=== PATIENT | female | born 1970 | race Caucasian/White ===

== ENCOUNTER → 2024-04-28 10:53 | Outpatient (REF) | payer OTHER, SELFPAY | LOC: WDC 10:53 | PROVIDERS: ATTENDING PHYSICIAN Obstetrics & Gynecology; FAMILY PHYSICIAN Family Medicine | DX: Z12.31 Encounter for screening mammogram for malignant neoplasm of breast (principal) | CPT/HCPCS: 77063; 77067 ==

== ENCOUNTER → 2024-08-18 14:27 | Outpatient (REF) | payer OTHER, SELFPAY | LOC: RAD 14:27 | PROVIDERS: ATTENDING PHYSICIAN Obstetrics & Gynecology; FAMILY PHYSICIAN Family Medicine | DX: D27.9 Benign neoplasm of unspecified ovary (principal) | CPT/HCPCS: 76830; 76856 ==

== ENCOUNTER → 2024-12-28 17:39 | Outpatient (REF) | payer OTHER, SELFPAY | LOC: MRI 17:39 | PROVIDERS: ATTENDING PHYSICIAN Orthopaedic Surgery; FAMILY PHYSICIAN Family Medicine | DX: M25.562 Pain in left knee (principal) | CPT/HCPCS: 73721 ==

== ENCOUNTER 2025-03-02 07:38 | Outpatient (RCR) | payer OTHER, SELFPAY | END 2025-03-02 23:59 | disposition home or self-care (01) | LOC: RPT 07:38 | PROVIDERS: ATTENDING PHYSICIAN Physician Assistant Surgical; FAMILY PHYSICIAN Family Medicine | DX: S82.142D Displaced bicondylar fracture of left tibia, subsequent encounter for closed fracture with routine healing (principal); M25.462 Effusion, left knee; Z73.6 Limitation of activities due to disability; R26.2 Difficulty in walking, not elsewhere classified; M62.81 Muscle weakness (generalized); R26.89 Other abnormalities of gait and mobility; V29.99XD Rider (driver) (passenger) of other motorcycle injured in unspecified traffic accident, subsequent encounter | CPT/HCPCS: 97110; 97161 ==

== ENCOUNTER → 2025-05-01 11:30 | Outpatient (REF) | payer OTHER, SELFPAY | LOC: WDC 11:30 | PROVIDERS: ATTENDING PHYSICIAN Obstetrics & Gynecology; FAMILY PHYSICIAN Family Medicine | DX: Z12.31 Encounter for screening mammogram for malignant neoplasm of breast (principal) | CPT/HCPCS: 77063; 77067 ==